=== PATIENT | male | born 1970 | race Caucasian/White ===

== ENCOUNTER 2021-02-15 09:52 | Day surgery (SDC) | payer BC ==
[~2021-02-15 09:52] MED LIST: Albuterol 0.083% 2.5 MG/3 ML Neb Soln NEB PRN; Lactated Ringers 1,000 ML IV SCH; Lidocaine 2% 5 ML SDV ONE; Ondansetron 4 MG/2 ML SDV IVPUSH PRN; Ondansetron 4 MG/2 ML SDV ONE; Sodium Chloride 0.9% 10 ML SDV IV PRN; Sodium Chloride 0.9% 10 ML Syringe FLUSH PRN; Sodium Chloride 0.9% 2.5 ML Syringe FLUSH PRN; fentaNYL 100 MCG/2 ML SDV ONE
[2021-02-15] MEDS ORDERED: Propofol 200 MG/20 ML SDV ONE ×2 (11:04)
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
--- NOTE | 2021-02-16 07:39 | PCM.POSTAN ---
POST ANESTHESIA ASSESSMENT - MENTAL STATUS Mental Status: Alert, Oriented - VITAL SIGNS Vital Signs: Last Vital Signs Temp 97.7 F 02/15/21 11:50 Pulse 62 02/15/21 11:50 Resp 14 02/15/21 11:50 BP 112/66 02/15/21 11:50 Pulse Ox 93 L 02/15/21 11:50 - RESPIRATORY Respiratory Status: Respiratory Rate WNL, Airway Patent, O2 Saturation Stable - CARDIOVASCULAR CV Status: Pulse Rate WNL, Blood Pressure Stable - GASTROINTESTINAL GI Status: No Symptoms - POST OP HYDRATION Hydration Status: Adequate & Stable
--- NOTE | 2021-02-16 07:40 | PCM48HPAN ---
Post Anesthesia Note - EVALUATION WITHIN 48HRS OF ANESTHETIC Vital Signs in Normal Range: Yes Patient Participated in Evaluation: Yes Respiratory Function Stable: Yes Airway Patent: Yes Cardiovascular Function Stable: Yes Hydration Status Stable: Yes Pain Control Satisfactory: Yes Nausea and Vomiting Control Satisfactory: Yes Mental Status Recovered: Yes Vital Signs: Last Vital Signs Temp 97.7 F 02/15/21 11:50 Pulse 62 02/15/21 11:50 Resp 14 02/15/21 11:50 BP 112/66 02/15/21 11:50 Pulse Ox 93 L 02/15/21 11:50
--- NOTE | 2021-02-16 08:03 | PCM.OPNOTE ---
- General Post-Op/Procedure Note Date of Surgery/Procedure: 02/15/21 Operative Procedure(s): Diagnostic EGD and colonoscopy Findings: gastritis, duodenitis, diverticulosis Pre Op Diagnosis: Abdominal pain, IBS Post-Op Diagnosis: Gastritis, duodenitis, diverticulosis Anesthesia Technique: NANCY Primary Surgeon: Adelita Moore Condition: Good
--- NOTE | 2021-02-16 12:25 | OR ---
SURGEON: ADELITA MOORE MD DATE OF PROCEDURE: 02/15/2021 PREOPERATIVE DIAGNOSES: 1. Change in bowel habits. 2. Abdominal pain. 3. History of irritable bowel syndrome. POSTOPERATIVE DIAGNOSES: 1. Gastritis and duodenitis. 2. Diverticulosis. PROCEDURE PERFORMED: Diagnostic esophagogastroduodenoscopy and colonoscopy. PRIMARY SURGEON: Adelita Moore MD ANESTHESIA: MAC. INSTRUMENT USED: Olympus endoscope and colonoscope. EXTENT OF EXAM: To the second portion of duodenum, to the cecum. PREPARATION: Good. LIMITATIONS: None. INDICATIONS FOR EXAMINATION: The patient is a 51-year-old male who has been experiencing abdominal pain and has noticed a change in his bowel habits. He has a history of IBS as well as kidney stones. He has not had a colonoscopy. I ordered a preoperative CT scan, which showed 2 nonobstructing stones in the left kidney. There was no acute abdominal pathology. I explained the need for diagnostic EGD and colonoscopy. I explained the procedure, expected perioperative course, and the risks. He verbalized understanding and wishes to proceed. PROCEDURE IN DETAIL: The patient was brought into the endoscopy suite and placed in the left lateral decubitus position. A time-out was completed verifying the patient's name, age, date of , allergies, and procedure to be performed. Monitored anesthesia care was induced, and continuous oxygen was provided via nasal cannula throughout the procedure. A bite block was placed in the patient's mouth. After adequate sedation was achieved, a well-lubricated endoscope was placed in the patient's mouth and advanced under direct visualization to the second portion of duodenum. This appeared normal. A photograph was taken. The scope was then fully withdrawn while examining the color, texture, anatomy, and integrity mucosa of the upper GI tract. The patient was noted to have some inflammation within the first portion of the duodenum. A biopsy was taken using cold biopsy forceps and sent to Pathology, labeled as duodenum. The scope was brought into the stomach, and a photograph was taken of the pylorus and GE junction. The patient was noted to have some mild inflammation of the antrum. A biopsy of this was taken. Biopsies were taken of the gastric body and fundus as well and sent for histologic review and H. pylori testing. There was no evidence of a hiatal hernia. The scope was brought into the distal esophagus. There was some evidence of possible mild esophagitis. The Z-line appeared grossly normal. A biopsy was taken of the distal esophageal mucosa and sent to Pathology for histologic review. The remainder of the esophagus was free of pathology. The scope was removed, and this portion of procedure terminated. A digital rectal exam was performed. This exam was within normal limits. A well- lubricated colonoscope was inserted into the rectum and advanced under direct visualization to the level of the cecum. The cecum was identified by both visual and anatomic landmarks. A photograph was taken of the cecal cap; however, I was unable to retroflex the scope within the cecum due to looping of the scope more proximally. The scope was then fully withdrawn while examining the color, texture, anatomy, and integrity of mucosa from the cecum to the anal canal. The patient was noted to have diverticula within the sigmoid colon. Random biopsies were taken throughout the colon and sent to Pathology. The scope was then brought into the rectum and retroflexed to allow visualization of the anal canal opening. This appeared normal, and a photograph was taken. The scope was then straightened out and fully withdrawn. The cecum to anus time was 7 minutes. The patient tolerated the procedure well and was transferred to the PACU in stable condition. ENDOSCOPIC DIAGNOSES: 1. Gastritis and duodenitis. 2. Diverticulosis. RECOMMENDATIONS: Follow up in clinic in 2 weeks. ALONZO LIVINGSTON /[id number] MTDD
== END 2021-02-15 12:19 | disposition home or self-care (01) ==
LOC: MW.SDS 09:52
PROVIDERS: ATTEND Surgery
DX: K57.30 Diverticulosis of large intestine without perforation or abscess without bleeding (principal); K20.90 Esophagitis, unspecified without bleeding; K29.90 Gastroduodenitis, unspecified, without bleeding; Z98.890 Other specified postprocedural states; E66.9 Obesity, unspecified; F17.210 Nicotine dependence, cigarettes, uncomplicated; Z68.39 Body mass index [BMI] 39.0-39.9, adult
CPT/HCPCS: 43239; 45380; J2704; J3010; J7120; 00813; 88305; 88342; J2405

== ENCOUNTER 2021-10-17 02:51 | Emergency (ER) | payer BC ==
[2021-10-17] MEDS ORDERED: Sodium Chloride 0.9% 2.5 ML Syringe FLUSH PRN (03:10)
[2021-10-17] MEDS ORDERED: Sodium Chloride 0.9% 10 ML Syringe FLUSH PRN (03:10)
[2021-10-17] MEDS ORDERED: Ondansetron 4 MG/2 ML SDV IVPUSH ONE (03:11)
[2021-10-17] MEDS ORDERED: Ketorolac 30 MG/ML SDV IVPUSH ONE (03:11)
[2021-10-17] MEDS ORDERED: Morphine 4 MG/ML VIAL IVPUSH ONE (03:11)
[2021-10-17 03:36] LABS: BLOOD UREA NITROGEN,BUN 12 mg/dL (7.0-18.0); CARBON DIOXIDE,CO2 26.4 mmol/L (21.0-32.0); CHLORIDE,CL 105 mmol/L (98-107); GLUCOSE RANDOM 102 mg/dL (74-106); POTASSIUM,K 4.1 mmol/L (3.5-5.1); SODIUM,NA 138 mmol/L (136-148)
== END 2021-10-17 05:04 | disposition home or self-care (01) ==
LOC: MW.ED 02:51
DX: N20.0 Calculus of kidney (principal); E66.9 Obesity, unspecified; Z68.38 Body mass index [BMI] 38.0-38.9, adult
CPT/HCPCS: 36415; 74176; 80053; 81001; 85025; 96374; 96375; 99284; J1885; J2270; J2405

== ENCOUNTER 2023-08-22 18:08 | Emergency (ER) | payer BC ==
[2023-08-22] MEDS ORDERED: diphenhydrAMINE 50 MG/ML SDV IVPUSH ONE (18:39)
[2023-08-22] MEDS ORDERED: Sodium Chloride 0.9% 1,000 ML IV ONE (18:39)
[2023-08-22] MEDS ORDERED: Ketorolac 30 MG/ML SDV IVPUSH ONE (18:39)
[2023-08-22] MEDS ORDERED: Prochlorperazine 10 MG/2 ML SDV IVPUSH ONE (18:42)
[2023-08-22 19:14] LABS: BASOPHILS ABSOLUTE AUTO 0.05 K/uL (0.00-0.20); BASOPHILS PERCENT AUTO 0.7 % (0.0-1.0); EOSINOPHILS ABSOLUTE AUTO 0.21 K/uL (0.00-0.45); EOSINOPHILS PERCENT AUTO 2.8 % (0.0-6.0); HEMATOCRIT 46.8 % (42.0-52.0); IMMATURE GRAN ABSOLUTE AUTO 0.03 K/uL (0.00-0.05); IMMATURE GRAN PERCENT AUTO 0.4 % (0.0-0.4); LYMPHOCYTES ABSOLUTE AUTO 2.21 K/uL (1.00-4.80); LYMPHOCYTES PERCENT AUTO 29.4 % (24.0-44.0); MEAN CORPUSCULAR HEMOGLOBIN 30.3 pg (28.0-32.0); MEAN CORPUSCULAR HGB CONC 34.2 g/dL (32.0-36.0); MEAN CORPUSCULAR VOLUME 88.6 fL (83.0-99.0); MEAN PLATELET VOLUME 10.2 fL (9.4-12.4); MONOCYTES ABSOLUTE AUTO 0.74 K/uL (0.00-0.80); MONOCYTES PERCENT AUTO 9.8 % (0.0-8.0); NEUTROPHILS ABSOLUTE AUTO 4.28 K/uL (1.80-7.70); NEUTROPHILS PERCENT AUTO 56.9 % (41.0-71.0); PLATELET COUNT,PLT 214 K/uL (150-400); RED BLOOD CELL COUNT 5.28 M/uL (4.52-5.90); WHITE BLOOD CELL COUNT,WBC 7.52 K/uL (3.9-11.3)
[2023-08-22 19:59] LABS: A/G RATIO 1.3 (0.9-1.6); ALANINE AMINOTRANSFERASE,ALT 22 IU/L (14-63); ALBUMIN 4.1 g/dL (3.4-5.0); ALKALINE PHOSPHATASE 84 U/L (46-116); ASPARTATE AMNIOTRANSFERASE,AST 37 IU/L (15-37); BILIRUBIN TOTAL 0.4 mg/dL (0.2-1.0); BLOOD UREA NITROGEN,BUN 12 mg/dL (7.0-18.0); CHLORIDE,CL 103 mmol/L (98-107); CREATININE 0.9 mg/dL (0.8-1.3); EST CRCL DRUG DOSING (CG) 106.04 mL/min; GLUCOSE RANDOM 78 mg/dL (74-106); MAGNESIUM 2.2 mg/dL (1.8-2.4); POTASSIUM,K 3.8 mmol/L (3.5-5.1); PROTEIN TOTAL,TP 7.2 g/dL (6.4-8.2); SODIUM,NA 141 mmol/L (136-148)
[2023-08-22 20:03] LABS: ESTIMATED GFR 101 mL/min (>60); ETHANOL BLOOD MEDICAL < 3.0 mg/dL
== END 2023-08-22 21:53 | disposition home or self-care (01) ==
LOC: MW.ED 18:08
DX: R42 Dizziness and giddiness (principal); Z79.899 Other long term (current) drug therapy
CPT/HCPCS: 36415; 70450; 71045; 71046; 80053; 80307; 83735; 84484; 85025; 96361; 96374; 96375; 99285; J0780; J1200; J1885; J7030; 99284

== ENCOUNTER 2024-03-19 02:51 | Emergency (ER) | payer BC ==
[2024-03-19 03:24] LABS: BASOPHILS ABSOLUTE AUTO 0.04 K/uL (0.00-0.20); BASOPHILS PERCENT AUTO 0.3 % (0.0-1.0); EOSINOPHILS ABSOLUTE AUTO 0.03 K/uL (0.00-0.45); EOSINOPHILS PERCENT AUTO 0.2 % (0.0-6.0); HEMATOCRIT 46.1 % (42.0-52.0); HEMOGLOBIN 15.6 g/dL (14.0-18.0); IMMATURE GRAN ABSOLUTE AUTO 0.07 K/uL (0.00-0.05); IMMATURE GRAN PERCENT AUTO 0.5 % (0.0-0.4); LYMPHOCYTES ABSOLUTE AUTO 0.78 K/uL (1.00-4.80); LYMPHOCYTES PERCENT AUTO 5.6 % (24.0-44.0); MEAN CORPUSCULAR HEMOGLOBIN 29.8 pg (28.0-32.0); MEAN CORPUSCULAR HGB CONC 33.8 g/dL (32.0-36.0); MEAN PLATELET VOLUME 9.7 fL (9.4-12.4); MONOCYTES PERCENT AUTO 7.2 % (0.0-8.0); NEUTROPHILS PERCENT AUTO 86.2 % (41.0-71.0); PLATELET COUNT,PLT 179 K/uL (150-400); RED BLOOD CELL COUNT 5.24 M/uL (4.52-5.90); WHITE BLOOD CELL COUNT,WBC 13.92 K/uL (3.9-11.3)
[2024-03-19 03:28] LABS: BILIRUBIN,URINE NEGATIVE (NEGATIVE); COLOR,URINE YELLOW; GLUCOSE,URINE NEGATIVE (NEGATIVE); KETONES,URINE 15 mg/dL (NEGATIVE); LEUKOCYTE ESTERASE,URINE MODERATE (NEGATIVE); NITRITE,URINE POSITIVE (NEGATIVE); OCCULT BLOOD,URINE MODERATE (NEGATIVE); PROTEIN,URINE TRACE mg/dL (NEGATIVE)
[2024-03-19 03:29] LABS: APPEARANCE,URINE CLOUDY
[2024-03-19 03:34] LABS: BACTERIA,URINE 4+ (NEGATIVE); EPITHELIAL CELLS,URINE FEW (NONE-FEW); MUCUS,URINE LIGHT (NONE-MOD)
[2024-03-19] MEDS: Metoclopramide 10 MG/2 ML SDV IVPUSH ONE (03:34)
[2024-03-19] MEDS: Sodium Chloride 0.9% 2.5 ML Syringe FLUSH PRN (03:34)
[2024-03-19] MEDS: Sodium Chloride 0.9% 10 ML Syringe FLUSH PRN (03:34)
[2024-03-19] MEDS: Sodium Chloride 0.9% 1,000 ML IV ONE ×2 (03:35→05:13)
[2024-03-19 03:36] LABS: INR 1.08 (0.86-1.11)
[2024-03-19 03:37] LABS: A/G RATIO 1.1 (0.9-1.6); ALANINE AMINOTRANSFERASE,ALT 22 IU/L (14-63); ALBUMIN 3.9 g/dL (3.4-5.0); ALKALINE PHOSPHATASE 68 U/L (46-116); ASPARTATE AMNIOTRANSFERASE,AST 44 IU/L (15-37); BLOOD UREA NITROGEN,BUN 15 mg/dL (7.0-18.0); CALCIUM 8.6 mg/dL (8.5-10.1); CARBON DIOXIDE,CO2 24.3 mmol/L (21.0-32.0); CHLORIDE,CL 98 mmol/L (98-107); CREATININE 1.1 mg/dL (0.8-1.3); EST CRCL DRUG DOSING (CG) 88.22 mL/min; ESTIMATED GFR 79 mL/min (>60); ETHANOL BLOOD MEDICAL <3 mg/dL; GLUCOSE RANDOM 109 mg/dL (74-106); POTASSIUM,K 3.5 mmol/L (3.5-5.1); PROTEIN TOTAL,TP 7.4 g/dL (6.4-8.2); SODIUM,NA 134 mmol/L (136-148)
[2024-03-19 03:38] LABS: AMPHETAMINES SCREEN, URINE PRESUMPTIVE POSITIVE (CUTOFF=500); BARBITURATE SCREEN,URINE NEGATIVE (CUTOFF=200); BENZODIAZEPINES SCREEN,URINE NEGATIVE (CUTOFF=150); BUPRENORPHINE SCREEN,URINE NEGATIVE (CUTOFF=10); METHADONE SCREEN, URINE NEGATIVE (CUTOFF=200); METHAMPHETAMINES SCREEN, URINE NEGATIVE (CUTOFF=500); OXYCODONE SCREEN,URINE NEGATIVE (CUT0FF=100); PCP SCREEN,URINE NEGATIVE (CUTOFF=25); THC SCREEN,URINE 20 NG/ML NEGATIVE (CUTOFF=50)
[2024-03-19 04:14] LABS: LACTIC ACID 0.8 mmol/L (0.4-2.0)
[2024-03-19 04:20] LABS: CORONAVIRUS COVID-19 NAA NEGATIVE (NEGATIVE); INFLUENZA A NAA NEGATIVE (NEGATIVE); INFLUENZA B NAA NEGATIVE (NEGATIVE); RESPIRATORY SYNCYTIAL VIR NAA NEGATIVE (NEGATIVE)
[2024-03-19] MEDS: cefTRIAXone 2 GM in Sodium Chloride 0.9% 50 ML IV ONE (05:13)
[2024-03-19] MEDS: Propofol 200 MG/20 ML SDV IVPUSH ONE (05:18)
[2024-03-19] MEDS: Benzocaine 20% Topical Spray UD MUCMEM ONE (05:18)
[2024-03-19] MEDS: Ketamine 500 mg/10 ML MDV IV ONE (05:18)
[2024-03-19] MEDS: Lidocaine 4% 5 ML Amp NEB ONE (05:20)
[2024-03-19] MEDS: Succinylcholine 200 MG/10 ML MDV IVPUSH STA (05:20)
[2024-03-19] MEDS: Rocuronium 50 MG/5 ML Vial IVPUSH ONE (05:21)
== END 2024-03-19 06:50 | disposition home or self-care (01) ==
LOC: MW.ED 02:51
DX: N39.0 Urinary tract infection, site not specified (principal); R51.9 Headache, unspecified
CPT/HCPCS: 0241U; 36415; 70450; 71045; 74176; 80053; 80305; 80307; 81001; 83605; 84484; 85025; 85610; 87040; 93005; 96361; 96365; 96375; 99284; J0330; J0696; J2765; J3490; J7030

== ENCOUNTER 2024-03-20 15:02 | Emergency (ER) | payer BC ==
[2024-03-20] MEDS: Ketorolac 30 MG/ML SDV IVPUSH ONE (18:00)
[2024-03-20] MEDS: Sodium Chloride 0.9% 1,000 ML IV ONE (18:00)
[2024-03-20] MEDS: Ondansetron 4 MG/2 ML SDV IVPUSH ONE (18:00)
[2024-03-20 18:10] LABS: BASOPHILS ABSOLUTE AUTO 0.02 K/uL (0.00-0.20); BASOPHILS PERCENT AUTO 0.6 % (0.0-1.0); EOSINOPHILS ABSOLUTE AUTO 0.02 K/uL (0.00-0.45); EOSINOPHILS PERCENT AUTO 0.6 % (0.0-6.0); HEMATOCRIT 47.3 % (42.0-52.0); HEMOGLOBIN 16.5 g/dL (14.0-18.0); IMMATURE GRAN ABSOLUTE AUTO 0.04 K/uL (0.00-0.05); IMMATURE GRAN PERCENT AUTO 1.1 % (0.0-0.4); LYMPHOCYTES PERCENT AUTO 22.9 % (24.0-44.0); MEAN CORPUSCULAR HEMOGLOBIN 30.9 pg (28.0-32.0); MEAN CORPUSCULAR HGB CONC 34.9 g/dL (32.0-36.0); MEAN CORPUSCULAR VOLUME 88.6 fL (83.0-99.0); MEAN PLATELET VOLUME 9.8 fL (9.4-12.4); MONOCYTES ABSOLUTE AUTO 0.37 K/uL (0.00-0.80); MONOCYTES PERCENT AUTO 10.6 % (0.0-8.0); NEUTROPHILS ABSOLUTE AUTO 2.24 K/uL (1.80-7.70); NEUTROPHILS PERCENT AUTO 64.2 % (41.0-71.0); PLATELET COUNT,PLT 161 K/uL (150-400); RED BLOOD CELL COUNT 5.34 M/uL (4.52-5.90); WHITE BLOOD CELL COUNT,WBC 3.49 K/uL (3.9-11.3)
[2024-03-20 18:28] LABS: BILIRUBIN,URINE NEGATIVE (NEGATIVE); COLOR,URINE YELLOW; GLUCOSE,URINE NEGATIVE (NEGATIVE); KETONES,URINE NEGATIVE (NEGATIVE); LEUKOCYTE ESTERASE,URINE MODERATE (NEGATIVE); NITRITE,URINE NEGATIVE (NEGATIVE); OCCULT BLOOD,URINE MODERATE (NEGATIVE); PROTEIN,URINE NEGATIVE (NEGATIVE)
[2024-03-20 18:35] LABS: ALBUMIN 3.7 g/dL (3.4-5.0); BILIRUBIN TOTAL 0.5 mg/dL (0.2-1.0); CALCIUM 8.7 mg/dL (8.5-10.1); CARBON DIOXIDE,CO2 30.9 mmol/L (21.0-32.0); EST CRCL DRUG DOSING (CG) 94.33 mL/min; PROTEIN TOTAL,TP 7.4 g/dL (6.4-8.2)
[2024-03-20 18:43] LABS: APPEARANCE,URINE HAZY; RBC,URINE 0-2 (0-2/HPF)
[2024-03-20 18:44] LABS: BACTERIA,URINE FEW (NEGATIVE); EPITHELIAL CELLS,URINE RARE (NONE-FEW)
== END 2024-03-20 19:24 | disposition home or self-care (01) ==
LOC: MW.ED 15:02
DX: N39.0 Urinary tract infection, site not specified (principal); Z75.8 Other problems related to medical facilities and other health care; Z79.899 Other long term (current) drug therapy
CPT/HCPCS: 36415; 80053; 81001; 83605; 85025; 87040; 87086; 96361; 96374; 96375; 99283; J1885; J2405; J7030

== ENCOUNTER 2024-06-09 04:43 | Emergency (ER) | payer BC ==
[2024-06-09] MEDS: Sodium Chloride 0.9% 1,000 ML IV STA (04:53)
[2024-06-09] MEDS: Ondansetron 4 MG/2 ML SDV IVPUSH ONE (04:54)
[2024-06-09] MEDS: Morphine 4 MG/ML Syringe IVPUSH ONE (04:54)
[2024-06-09 04:59] LABS: BASOPHILS ABSOLUTE AUTO 0.05 K/uL (0.00-0.20); BASOPHILS PERCENT AUTO 0.4 % (0.0-1.0); EOSINOPHILS ABSOLUTE AUTO 0.13 K/uL (0.00-0.45); EOSINOPHILS PERCENT AUTO 1.1 % (0.0-6.0); HEMATOCRIT 46.9 % (42.0-52.0); IMMATURE GRAN ABSOLUTE AUTO 0.05 K/uL (0.00-0.05); IMMATURE GRAN PERCENT AUTO 0.4 % (0.0-0.4); LYMPHOCYTES PERCENT AUTO 10.6 % (24.0-44.0); MEAN CORPUSCULAR HEMOGLOBIN 30.2 pg (28.0-32.0); MEAN CORPUSCULAR HGB CONC 34.1 g/dL (32.0-36.0); MEAN CORPUSCULAR VOLUME 88.7 fL (83.0-99.0); MONOCYTES ABSOLUTE AUTO 0.63 K/uL (0.00-0.80); MONOCYTES PERCENT AUTO 5.5 % (0.0-8.0); PLATELET COUNT,PLT 228 K/uL (150-400); RED BLOOD CELL COUNT 5.29 M/uL (4.52-5.90); WHITE BLOOD CELL COUNT,WBC 11.36 K/uL (3.9-11.3)
[2024-06-09] MEDS: Ketorolac 30 MG/ML SDV IVPUSH ONE (05:14)
[2024-06-09] MEDS: Tamsulosin 0.4 MG Cap.ER PO ONE (05:15)
[2024-06-09 05:21] LABS: A/G RATIO 1.3 (0.9-1.6); ALBUMIN 4.2 g/dL (3.4-5.0); BILIRUBIN TOTAL 0.5 mg/dL (0.2-1.0); CALCIUM 9.3 mg/dL (8.5-10.1); CARBON DIOXIDE,CO2 26.9 mmol/L (21.0-32.0); CREATININE 1.4 mg/dL (0.8-1.3); EST CRCL DRUG DOSING (CG) 67.38 mL/min; POTASSIUM,K 4.4 mmol/L (3.5-5.1); PROTEIN TOTAL,TP 7.5 g/dL (6.4-8.2)
[2024-06-09 05:58] LABS: APPEARANCE,URINE SLT CLOUDY; BILIRUBIN,URINE NEGATIVE (NEGATIVE); COLOR,URINE YELLOW; GLUCOSE,URINE NEGATIVE (NEGATIVE); KETONES,URINE NEGATIVE (NEGATIVE); LEUKOCYTE ESTERASE,URINE NEGATIVE (NEGATIVE); NITRITE,URINE NEGATIVE (NEGATIVE); OCCULT BLOOD,URINE LARGE (NEGATIVE); PH,URINE 7.5 (5.0-8.0); PROTEIN,URINE NEGATIVE (NEGATIVE); UROBILINOGEN,URINE 0.2 EU/dL (<2.0)
[2024-06-09 06:09] LABS: BACTERIA,URINE 1+ (NEGATIVE); EPITHELIAL CELLS,URINE NOT SEEN (NONE-FEW); RBC,URINE 20-30 (0-2/HPF); WBC,URINE 0-2 (0-5/HPF)
[2024-06-09] MEDS: cefTRIAXone 2 GM in Sodium Chloride 0.9% 50 ML IV ONE (06:23)
[2024-06-09] MEDS: Sodium Chloride 0.9% 10 ML Syringe FLUSH PRN (06:24)
[2024-06-09] MEDS: Sodium Chloride 0.9% 2.5 ML Syringe FLUSH PRN (06:24)
[2024-06-09 07:09] LABS: CREATININE 1.2 mg/dL (0.8-1.3); EST CRCL DRUG DOSING (CG) 78.61 mL/min
== END 2024-06-09 07:46 | disposition home or self-care (01) ==
LOC: MW.ED 04:43
DX: N39.0 Urinary tract infection, site not specified (principal); N20.0 Calculus of kidney; N17.9 Acute kidney failure, unspecified; Z79.899 Other long term (current) drug therapy; Z75.8 Other problems related to medical facilities and other health care
CPT/HCPCS: 36415; 74177; 80053; 81001; 82565; 83690; 85025; 96361; 96374; 96375; 99284; A9270; J0696; J1885; J2270; J2405; J3490; J7030